=== PATIENT | female | born 1955 | race Caucasian/White ===

== ENCOUNTER 2019-02-26 09:55 | Emergency (ER) | payer BC ==
[2019-02-26 10:20] VITALS: BP 155/77
--- NOTE | 2019-02-26 10:34 | UC ---
UC General HPI - HPI Summary HPI Summary: pt felt chilled 2 days. last pm she developed central abdominal "pressure" and "discomfort". this am has had 4 bowel movements as well. she has a long fmh of diverliculitis. she has a dx of diverticulosis on colonoscopy which was done within the past year but has never had a diverticulitis. no n/v/d. - History of Current Complaint Chief Complaint: UCAbdominalPain Stated Complaint: ABD CRAMPING/PRESSURE Time Seen by Provider: 02/26/19 10:24 Hx Obtained From: Patient Onset/Duration: Gradual Onset Timing: Constant Pain Intensity: 3 Aggravating: movement Associated Signs & Symptoms: Positive: Abdominal Pain, Other - R low back aches but only when she bends.. Negative: Diarrhea, Dysuria, Nausea, Vomiting - Allergy/Home Medications Allergies/Adverse Reactions: Allergies Allergy/AdvReac Type Severity Reaction Status Date / Time Penicillins Allergy Hives/Diff. Verified 02/26/19 10:12 Breathing/I tching Home Medications: Home Medications Bran/Gum/Fib/Shasta/Psyl/Kelp/Pec [Fiber 6 Tablet] 1 dose PO DAILY 02/26/19 [ History Confirmed 02/26/19] Calcium Carbonate [Calcium] 1 dose PO DAILY 02/26/19 [History Confirmed 02/26/19 ] PMH/Surg Hx/FS Hx/Imm Hx - Additional Past Medical History Additional PMH: diverticulosis Endocrine History: Dyslipidemia GI/ History: Gastroesophageal Reflux - Surgical History Surgical History: Yes Surgery Procedure, Year, and Place: T & A. Rt WRIST - GANGLION CYST REMOVED. BREAST BIOPSIES - BENIGN. APPY 05/2018 - Family History Known Family History: Positive: Non-Contributory - Social History Alcohol Use: None Substance Use Type: None Smoking Status (MU): Never Smoked Tobacco Review of Systems All Other Systems Reviewed And Are Negative: Yes Constitutional: Positive: Chills Gastrointestinal: Positive: Abdominal Pain. Negative: Vomiting, Diarrhea, Nausea Physical Exam Triage Information Reviewed: Yes Appearance: Well-Appearing Vital Signs: Initial Vital Signs Temp 100.1 F 02/26/19 10:11 Pulse 85 02/26/19 10:11 Resp 15 02/26/19 10:11 BP 155/77 02/26/19 10:11 Pulse Ox 99 02/26/19 10:11 Vital Signs Reviewed: Yes Eyes: Positive: Conjunctiva Clear Neck: Positive: Supple, Nontender, No Lymphadenopathy Respiratory: Positive: Lungs clear, Normal breath sounds Cardiovascular: Positive: RRR Abdomen Description: Positive: Other: - Flat. Hyperactive BS. Soft. Tender over L side of abdomen. No mass, HSM or cva tenderness. No pulsatile masses. Gentle jumping at bedisde causes abdominal discomfort. Musculoskeletal: Positive: ROM Intact Neurological: Positive: Alert Psychological: Positive: Age Appropriate Behavior Skin Exam: Normal Course/Dx - Course Course Of Treatment: pt agrees to ER transfer and will drive self. she was advised to stay nothing by mouth. Report Called to Dr Dang at the [facility]. advised of chills and L sided abdominal pain. - Differential Dx - Multi-Symptom Differential Diagnoses: Other - do not fell AAA. no urinary S/S's. Diverticulitis is most likely cause. - Diagnoses Provider Diagnosis: Left sided abdominal pain Discharge - Sign-Out/Discharge Documenting (check all that apply): Patient Departure All imaging exams completed and their final reports reviewed: No Studies - Discharge Plan Condition: Stable Disposition: TRANS HIGHER LVL OF CARE FAC Referrals: Rosey Alvarez [Primary Care Provider] - Additional Instructions: LEAVE HERE AND GO DIRECTLY TO [facility] DISCUSSED - Billing Disposition and Condition Condition: STABLE Disposition: Trans Higher Lvl of Care Fac
== END 2019-02-26 10:46 | disposition short-term general hospital (02) ==
LOC: UCCORT 09:55
DX: R10.9 Unspecified abdominal pain (principal); M54.5 Low back pain; Z88.0 Allergy status to penicillin
CPT/HCPCS: 99212; G0463